=== PATIENT | female | born 1960 | race Caucasian/White ===

== ENCOUNTER → 2025-05-06 | Outpatient (CLI) | payer MEDICARE, MEDICAID, SELFPAY ==
--- NOTE | 2025-05-06 12:50 | XR_ITS ---
Examination: Bone densitometry Date and time of exam:2024, 1254 hours INDICATIONS: Hysterectomy age 34 Technique: Lumbar spine and hip total bone mineralization values of an calculated. Peak reference and age match control results have been displayed. Findings: Lumbar spine total bone mineralization is1.038 gm/cm2. This is 0.1 standard deviations below peak reference. This is 1.8 standard deviations above age-matched controls. Hip total bone mineralization is 0.933 gm/cm2 This is 0.1 standard deviations below peak reference. This is 1.2 standard deviations above age-matched controls Impression: There is normal mineralization based on lumbar spine measurements. There is normal mineralization based on hip measurements
== END | disposition home or self-care (01) ==
LOC: CDIM 12:25
DX: Z13.820 Encounter for screening for osteoporosis (principal)
CPT/HCPCS: 77080